=== PATIENT | female | born 1955 | race Caucasian/White ===

== ENCOUNTER 2022-07-17 06:57 | Emergency (ER) | payer MEDICARE ==
[~2022-07-17] VITALS: Ht 162.6 cm; Wt 79.4 kg
== END 2022-07-17 08:00 | disposition home or self-care (01) ==
LOC: ER 06:57
DX: I10 Essential (primary) hypertension (principal); F22 Delusional disorders; Z79.899 Other long term (current) drug therapy
CPT/HCPCS: A9270